=== PATIENT | female | born 1990 | race Caucasian/White ===

== ENCOUNTER 2017-02-05 09:00 | Outpatient (RCR) | payer OTHER, SELFPAY ==
--- NOTE | 2016-11-19 15:28 | HP.PTEVAL ---
Patient's Visit Information JAY BATISTA is a 26 year old F referred to Physical Therapy by Milind Perkins with a diagnosis of Lumbar Radiculopathy. Date of Evaluation: 11/19/16 Physical Therapist: Serene Lowry - Visit Plan Frequency: 2x /Week Duration: 4 Weeks Plan: Focus on core s/s and dry needling - Subjective Subjective: Herniated a disc 3 years ago lifting boxes- has been on/off since then. Can irritate doing certain things and has been going to the chiropractor. Going to the chiropractor ([facility]) when she is symptomatic- so every couple of months. Has normal pain today. Normal pain is soreness in the low back L4-5. Agg: siting for long periods of time, lifting. Eases: laying down on her back, traction, e-stim. Occasionally has pain that radiates the right leg to the knee. Last time she had radiating pain was a month ago. No radiating pain since seeing the chiropractor- Was standing there and felt it shift. Goes to the gym- does group ex classes- no running ([employer]). Does lifting but stays away from deadlifts and squats with weight. Worst: 3/10 Best: 2/10 Describes as dull and achy unless she does something to it then its sharp. Month ago had N/T but none now. Sleep: not disturbed- back sleeper. Has had MRI and x-rays. Did physical therapy here for her back when it happened. And has been through physical therapy here a few times. Someone recommended dry needling. No loss or change in bowel or bladder. 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 PMHx: None Meds: Spirnolactone, BC. - Objective Posture: FH, RS- can correct with verbal cues. Gait: no deviation noted. HR/TR: WNL. Balance: 30 sec without LOB but does have mild hip drop bilaterally. Squat:no deviation. ROM: Lumbar: flxn:hands to mid thigh, Extn: SNL, SB: WNL, Rot: WNL, Hip: WNL. Dural Signs: positive, Slump: positive. Sensation/Reflex: WNL. Strength: Ankle: 5/5, Knee: 5/5, Hip: 4/5, Core: fair minus - Goals Goal 1:: Patient will be I with HEP and progression Goal Time Frame: 4-6 Weeks Goal 2:: Patient will maintain proper posture t/o tx session to demo core s/s. Goal Time Frame: 4-6 Weeks Goal 3:: Patient will report 0/10 pain for 1 week Goal Time Frame: 4-6 Weeks - Rehabilitation Potential Physical Therapy Diagnosis: Patient presents with hypomobility- she has decreased ROM, strength and muscular endurance leading to poor posture and increased pain with ADL's. Rehabilitation Potential: Good - Anticipated Interventions Patient/Client Instruction: Educate patient on: Benefits of Fitness Program For the Purpose of:: To increase tolerance to activity/condition/position Therapeutic Exercise to Include: Strength training, Endurance training, Agility training, Body mechanics, Postural training, Flexibilty training, Gait and locomotor training, Passive ROM, Active ROM, Dynamic Lumbar Stabilization, Rigoberto Exercises, Scapular Strength/Stabilization For the Purpose of:: To improve muscle performance and motor function Manual Therapy Techniques to Include: Functional dry needling, Soft tissue mobilization For the Purpose of:: To improve nutrient delivery to tissue Thank you for the opportunity to evaluate your patient. For Medicare and Medicare HMO plans, please review the plan of care and approve it. It will need to be FAXED BACK to us at [phone] for Medicare purposes. Please let me know if there are questions or concerns regarding this plan of care. Physician Signature: Date:
--- NOTE | 2016-12-20 15:13 | HP.PTREVAL_ITS ---
Milind Perkins, It has been my pleasure to treat JAY BATISTA over the last 9 visits for Lumbar Radiculopathy. Please see the progress note below for an update on the physical therapy plan of care! Subjective: Patient reports that she is 95% better and back to all normal activities without pain Objective/Function: Patient is doing great, she has no pain with ADL's, good core strength and functional mobility. She is I with HEP and appropriate to continue current HEP. Encouraged to call if any questions or concerns Plan Plan: Hold 4 weeks then d.c if no contact from patient Goals Goal 1:: Patient will be I with HEP and progression Goal Time Frame: 4-6 Weeks Goal Progress: Goal Met Goal 2:: Patient will maintain proper posture t/o tx session to demo core s/s. Goal Time Frame: 4-6 Weeks Goal Progress: Goal Met Goal 3:: Patient will report 0/10 pain for 1 week Goal Time Frame: 4-6 Weeks Goal Progress: Goal Met Anticipated Interventions Patient/Client Instruction: Educate patient on: Benefits of Fitness Program For the Purpose of:: To increase tolerance to activity/condition/position Therapeutic Exercise to Include: Strength training, Endurance training, Agility training, Body mechanics, Postural training, Flexibilty training, Gait and locomotor training, Passive ROM, Active ROM, Dynamic Lumbar Stabilization, Rigoberto Exercises, Scapular Strength/Stabilization For the Purpose of:: To improve muscle performance and motor function Manual Therapy Techniques to Include: Functional dry needling, Soft tissue mobilization For the Purpose of:: To improve nutrient delivery to tissue Please do not hesitate to contact me at [phone] by phone or Fax: if you have questions or concerns regarding this new plan of care! Sincerely, Serene Lowry
--- NOTE | 2017-03-20 14:23 | HP.PT.NRP ---
HP - Discharge Summary (1) - Patient Information JAY BATISTA was seen in my office for initial evaluation on 11/19/16. The following Plan of Care was established for this patient: Initial Frequency: 2x /Week Initial Duration: 4 Weeks - Anticipated Interventions Patient/Client Instruction: Educate patient on: Benefits of Fitness Program For the Purpose of:: To increase tolerance to activity/condition/position Therapeutic Exercise to Include: Strength training, Endurance training, Agility training, Body mechanics, Postural training, Flexibilty training, Gait and locomotor training, Passive ROM, Active ROM, Dynamic Lumbar Stabilization, Rigoberto Exercises, Scapular Strength/Stabilization For the Purpose of:: To improve muscle performance and motor function Manual Therapy Techniques to Include: Functional dry needling, Soft tissue mobilization For the Purpose of:: To improve nutrient delivery to tissue This patient was last seen in our office . Pertinent comments regarding their Physical therapy will appear below: Patient has not attended PT in over 30 days and is appropriate to be d/c at this time and return to MD for further evaluation. At this point I will be discontinuing this patient from physical therapy. I would be happy to see this patient again in the future if found appropriate by the physician. Thank you! Serene Lowry
== END 2017-02-05 19:00 | disposition home or self-care (01) ==
LOC: PT 09:00
PROVIDERS: Family Provider Family Medicine; PCP Family Medicine; Visit Provider Family Medicine
DX: M54.16 Radiculopathy, lumbar region (principal)
CPT/HCPCS: 97014; 97110; 97140; 97161; G0283

== ENCOUNTER 2017-06-14 10:00 | Outpatient (RCR) | payer OTHER, BC, SELFPAY ==
--- NOTE | 2017-09-11 16:42 | HP.PTDCNRP_ITS ---
HP - Discharge Summary (1) - Patient Information JAY BATISTA was seen in my office for initial evaluation on 04/10/17. The following Plan of Care was established for this patient: Initial Frequency: As neededd - Anticipated Interventions Manual Therapy Techniques to Include: Functional dry needling This patient was last seen in our office 06/14/17. Pertinent comments regarding their Physical therapy will appear below: Pt. was seen for self pay dry needling of her lumbar spine. Pt. had good relief of tension. Pt. was to move to [place] at our last visit. She has not been seen for ~3 months and will be DC from PT at this point in time. At this point I will be discontinuing this patient from physical therapy. I would be happy to see this patient again in the future if found appropriate by the physician. Thank you! Evan Mayo
== END 2017-06-14 19:00 | disposition home or self-care (01) ==
LOC: PT 10:00
PROVIDERS: Family Provider Family Medicine; PCP Family Medicine; Visit Provider Family Medicine
DX: M54.16 Radiculopathy, lumbar region (principal)

== ENCOUNTER 2017-10-11 11:52 | Outpatient (RCR) | payer SELFPAY ==
--- NOTE | 2017-11-19 14:08 | HP.PT.NRP ---
HP - Discharge Summary (1) - Patient Information JAY BATISTA was seen in my office for initial evaluation on . The following Plan of Care was established for this patient: This patient was last seen in our office 10/11/17. Pertinent comments regarding their Physical therapy will appear below: Pt. was seen for self pay dry needling of her lumbar spine. Pt. has subsequently moved out of town and will be DC from PT at this point in time. At this point I will be discontinuing this patient from physical therapy. I would be happy to see this patient again in the future if found appropriate by the physician. Thank you! Evan Mayo
== END 2017-10-11 19:00 | disposition home or self-care (01) ==
LOC: PT 11:52
PROVIDERS: Family Provider Family Medicine; PCP Family Medicine
DX: R69 Illness, unspecified (principal)

== ENCOUNTER 2019-02-05 12:27 | Outpatient (RCR) | payer SELFPAY ==
--- NOTE | 2019-07-29 10:18 | HP.PT.NRP ---
JAY Judie KAUFMANLESTER was seen in my office for initial evaluation on . The following Plan of Care was established for this patient: This patient was last seen in our office 02/05/19. Pertinent comments regarding their Physical therapy will appear below: Pt. has not been seen in several months and will be DC from PT at this point in time. At this point I will be discontinuing this patient from physical therapy. I would be happy to see this patient again in the future if found appropriate by the physician. Thank you! NILSA ReyesT
== END 2019-02-05 19:00 | disposition home or self-care (01) ==
LOC: PT 12:27
PROVIDERS: Family Provider Family Medicine; PCP Family Medicine
DX: R69 Illness, unspecified (principal)